=== PATIENT | female | born 1990 | race Caucasian/White ===

== ENCOUNTER → 2016-10-30 | Outpatient (CLI) | payer OTHER ==
[~2016-10-30] MED LIST: ADDERALL XR25 MG PO; AMBIEN 10MG TAB10 MG PO; APAP/BUTALBITAL1 TA1 PO; FLONASE 50 MCG16 GM; PHENERGAN 25MG.25 M1 PO; SYNTHROID 0.1M0.1 MG PO; TIZANIDINE HCL 44 MG PO; TORADOL10 MG PO; VITAMIN D50000 I1 PO; ZYRTEC10 M3 PO
--- NOTE | 2016-10-31 14:09 | RADIOLOGY REPORT PS360 ---
MRI-C-SPINE W/O, MRI-3D RENDERING/MYELOGRAM HISTORY: Cervical root uropathy, right arm weakness and numbness, neck pain, right arm pain and tingling CERVICAL RADICULOPATHY, RIGHT ARM WEAKNESS ORDERING PHYSICIAN: Luis Miller MD PATIENT AGE: 25 years COMPARISON: CT scan of 12/09/2014 TECHNIQUE: Standard multiplanar multiecho sequences are performed without contrast. 3-D MIP and myelographic images are also rendered and reviewed FINDINGS: There is normal alignment. There is straightening of the cervical lordosis which is nonspecific. The craniocervical junction shows minimal cerebellar tonsillar ectopia of 2 to 3 mm. No disc herniation. No neural impingement apparent. No canal stenosis. No fracture or dislocation. No lytic or blastic changes. The spinal cord has an unremarkable appearance. IMPRESSION: 1. No disc herniation, canal stenosis, or neural impingement is evident. 2. Straightening of cervical lordosis which could be due to patient positioning or muscle spasm. 3. Very minimal cerebellar tonsillar ectopia
== END ==
LOC: RAD 10:24
DX: M54.12 Radiculopathy, cervical region (principal); R29.898 Other symptoms and signs involving the musculoskeletal system